=== PATIENT | female | born 1980 | race American Indian/Alaskan Native ===

== ENCOUNTER 2018-06-28 17:57 | Emergency (ER) | payer BC ==
--- NOTE | 2018-06-28 19:22 | Emergency Department Report ---
Chief Complaint: Upper Respiratory Infection Stated Complaint: CHEST CONGESTION OVER A MONTH Time Seen by Provider: 06/28/18 19:19 - HPI History of Present Illness: pt presents with cough x 1 month has associated congestion (+) rhinorrhea no fever pt states she has had seasonal allergies previously pt has been taking mucinex and cold and flu tablet no sick contact no sore throat no PMHx no daily meds pt states she has a drug allergy to amoxicillin PSHx tubal ligation D&C non smoker (+) drinker no drug use MSE screening note: Focused history and physical exam performed. Due to findings the following was ordered: CXR consent form signed for radiology ED Disposition for MSE Condition: Stable
--- NOTE | 2018-06-28 21:40 | XRay Report ---
PROCEDURE: Chest. TECHNIQUE: PA and lateral views. HISTORY: Cough. COMPARISONS: None. FINDINGS: The heart and mediastinum appear normal. The lungs are clear and well expanded. There are no pleural effusions. The soft tissues and regional skeleton are unremarkable. IMPRESSION: Normal study. This document is electronically signed by Skip Arzate MD., June 28 2018 09:38:51 PM ET
[2018-06-28 23:21] VITALS: BP 118/82
--- NOTE | 2018-06-28 23:46 | Emergency Department Report ---
- General Chief Complaint: Upper Respiratory Infection Stated Complaint: CHEST CONGESTION OVER A MONTH Time Seen by Provider: 06/28/18 19:19 Source: patient Mode of arrival: Ambulatory Limitations: No Limitations - History of Present Illness MD Complaint: cough -: week(s) (2) Severity: moderate Consistency: constant - Related Data Allergies Allergy/AdvReac Type Severity Reaction Status Date / Time amoxicillin Allergy Unknown Verified 06/28/18 19:24 ED Review of Systems ROS: Stated complaint: CHEST CONGESTION OVER A MONTH Other details as noted in HPI Comment: All other systems reviewed and negative Constitutional: denies: chills, fever Respiratory: cough. denies: shortness of breath, SOB with exertion, wheezing Cardiovascular: denies: chest pain, palpitations Gastrointestinal: denies: abdominal pain, nausea Musculoskeletal: denies: back pain Neurological: denies: headache, weakness, numbness, paresthesias, confusion, abnormal gait ED Past Medical Hx - Surgical History Additional Surgical History: tubiligation - Social History Smoking Status: Never Smoker Substance Use Type: None ED Physical Exam - General Limitations: No Limitations General appearance: alert, in no apparent distress - Head Head exam: Present: atraumatic, normocephalic, normal inspection - Eye Eye exam: Present: normal appearance, PERRL - ENT ENT exam: Present: normal exam, normal orophraynx, mucous membranes moist - Neck Neck exam: Present: normal inspection, full ROM. Absent: tenderness, meningismus, lymphadenopathy, thyromegaly - Respiratory Respiratory exam: Present: normal lung sounds bilaterally - Cardiovascular Cardiovascular Exam: Present: regular rate, normal rhythm, normal heart sounds - GI/Abdominal GI/Abdominal exam: Present: soft, normal bowel sounds. Absent: distended, tenderness, guarding, rebound, rigid, organomegaly, mass, bruit, pulsatile mass - Extremities Exam Extremities exam: Present: normal inspection, normal capillary refill - Back Exam Back exam: Present: normal inspection. Absent: CVA tenderness (R), CVA tenderness (L) - Neurological Exam Neurological exam: Present: alert, oriented X3, CN II-XII intact, normal gait, reflexes normal - Skin Skin exam: Present: warm, intact, normal color ED Course Vital Signs 06/28/18 06/28/18 19:21 23:20 Temperature 98.4 F 98.3 F Pulse Rate 75 74 Respiratory 18 16 Rate Blood Pressure 123/71 Blood Pressure 118/82 [Left] O2 Sat by Pulse 99 99 Oximetry ED Medical Decision Making - Radiology Data Radiology results: report reviewed Chest x-ray is negative for acute finding. Critical care attestation.: If time is entered above; I have spent that time in minutes in the direct care of this critically ill patient, excluding procedure time. ED Disposition Clinical Impression: Acute bronchitis Disposition: - TO HOME OR SELFCARE Is pt being admited?: No Condition: Stable Instructions: Acute Bronchitis (ED) Referrals: SID ALVES MD [Primary Care Provider] - 3-5 Days
== END 2018-06-28 23:55 | disposition home or self-care (01) ==
LOC: ED 17:57
DX: J20.9 Acute bronchitis, unspecified (principal); Z98.51 Tubal ligation status; Z88.1 Allergy status to other antibiotic agents
CPT/HCPCS: 71046; 99283